=== PATIENT | female | born 1975 | race Caucasian/White ===

== ENCOUNTER 2016-09-18 09:54 | Emergency (ER) | payer MEDICAID ==
[~2016-09-18] VITALS: Ht 165.1 cm; Wt 80.0 kg
[2016-09-18] MEDS ORDERED: SODIUM CHLORIDE 0.9% 500 ML IV ONE (10:55)
[2016-09-18] MEDS ORDERED: ACETAMINOPHEN 325MG TABLET PO ONE (11:15)
[2016-09-18] MEDS ORDERED: KETOROLAC 30MG/ML VIAL IV ONE (11:15)
[2016-09-18 11:36] LABS: HEMATOCRIT. 38.6 % (36.0-48.0); HEMOGLOBIN. 13.1 g/dL (12.0-16.0); MEAN CORPUSCULAR HEMOGLOBIN 28.3 pg (28.0-32.0); MEAN CORPUSCULAR VOLUME 83.3 fL (81.0-99.0); MEAN PLATELET VOLUME 9.6 fl (7.4-10.4); PLATELET 159 x1000/uL (130-400); RED BLOOD CELL COUNT 4.63 mill/uL (4.2-5.4); RED CELL DISTRIBUTION WIDTH 14.5 % (11.6-14.6)
[2016-09-18 11:43] LABS: CHLORIDE 102 mEq/L (98-107)
[2016-09-18 11:46] LABS: CARBON DIOXIDE 25 mEq/L (21-32); HCG SCREEN NEGATIVE
[2016-09-18 11:52] LABS: PLATELET ESTIMATE NORMAL
[2016-09-18] MEDS ORDERED: POTASSIUM CHLORIDE 20MEQ TABLET SR PO ONE (12:00)
[2016-09-18 13:26] LABS: CLARITY URINE CLOUDY (CLEAR); COLOR URINE DARK YELLOW (YELLOW); GLUCOSE URINE NEGATIVE (NEGATIVE); KETONES URINE 1+ (NEGATIVE); LEUKOCYTE ESTERASE URINE 2+ (NEGATIVE); NITRITE URINE NEGATIVE (NEGATIVE); OCCULT BLOOD URINE 3+ (NEGATIVE); PROTEIN URINE 2+ (NEGATIVE); SPECIFIC GRAVITY URINE 1.024 (1.005-1.030)
[2016-09-18 13:48] LABS: *BARBITURATES SCREEN URINE NEGATIVE (NEGATIVE); *BENZODIAZEPINES SCREEN URINE NEGATIVE (NEGATIVE); *COCAINE SCREEN URINE NEGATIVE (NEGATIVE); CANNABINOID URINE SCREEN NEGATIVE (NEGATIVE); METHADONE URINE SCREEN NEGATIVE (NEGATIVE); OPIATES URINE SCREEN NEGATIVE (NEGATIVE); PHENCYCLIDINE URINE SCREEN NEGATIVE (NEGATIVE)
[2016-09-18 13:49] LABS: *AMPHETAMINES SCREEN URINE PRESUMTIVE POSITIVE (NEGATIVE)
[2016-09-18 14:30] VITALS: BP 98/51
== END 2016-09-18 14:34 | disposition home or self-care (01) ==
LOC: ER 10:21
DX: R55 Syncope and collapse (principal); N39.0 Urinary tract infection, site not specified
CPT/HCPCS: 36415; 71010; 80053; 80305; 81001; 84703; 85025; 93005; 96360; 96361; 99285; J7040

== ENCOUNTER 2016-11-13 06:32 | Day surgery (SDC) | payer MEDICAID ==
[~2016-11-13] VITALS: Ht 157.5 cm; Wt 81.6 kg
[~2016-11-13 06:32] MED LIST: FERR325T6 PO; IBUP-2030 PO; LEVO500T2 PO; TOPI100T37 PO; VITA1TAB20 PO; [UNRECOGNIZED DRUG - CODE] PO
[2016-11-13] MEDS ORDERED: LACTATED RINGERS 1,000 ML IV SCH (07:15)
[2016-11-13 07:16] LABS: UCG SCREEN NEGATIVE
[2016-11-13] MEDS ORDERED: [UNRECOGNIZED DRUG - REMARK] PO (07:46)
[2016-11-13] MEDS ORDERED: IOHEXOL-300 100 ML BOTTLE ONE (08:49)
[2016-11-13] MEDS ORDERED: MIDAZOLAM HCL 2 MG/2 ML VIAL ONE (09:00)
[2016-11-13] MEDS ORDERED: FENTANYL CITRATE/PF 50MCG/ML 2ML VIAL ONE (09:00)
[2016-11-13] MEDS ORDERED: HYDROMORPHONE HCL/PF 2MG/ML (OR) ONE (09:18)
[2016-11-13] MEDS ORDERED: GENTAMICIN SULF 40MG/ML 2ML VIAL ONE (09:18)
[2016-11-13] MEDS ORDERED: PROPOFOL 200MG/20ML VIAL IV ONE (09:45)
[2016-11-13] MEDS ORDERED: ONDANSETRON HCL 4MG/2ML VIAL ONE (09:48)
[2016-11-13] MEDS ORDERED: ROCURONIUM BROMIDE 10MG/ML VIAL 5ML IV ONE (09:51)
[2016-11-13] MEDS ORDERED: FENTANYL CITRATE/PF 50MCG/ML 2ML VIAL IV PRN (10:00)
[2016-11-13] MEDS ORDERED: HYDROMORPHONE HCL/PF 2MG/ML CPJ IV PRN (10:00)
[2016-11-13] MEDS ORDERED: ONDANSETRON HCL 4MG/2ML VIAL IV PRN (10:00)
[2016-11-13] MEDS ORDERED: GLYCOPYRROLATE 0.2 MG/ML 2ML VIAL ONE (10:21)
[2016-11-13] MEDS ORDERED: NEOSTIGMINE METHYLSULFATE 1MG/ML 10 ML VIAL ONE (10:21)
[2016-11-13] MEDS ORDERED: ACETAMINOPHEN 160 MG/5 ML UD CUP PO STA (11:31)
[2016-11-13] MEDS ORDERED: KETOROLAC 30MG/ML VIAL IV PRN (11:45)
[2016-11-13] MEDS ORDERED: ACETAMINOPHEN 325MG TABLET ONE (11:47)
[2016-11-13 11:58] VITALS: BP 120/68
[2016-11-13] MEDS ORDERED: IBUPROFEN 800MG TABLET PO PRN (12:30)
== END 2016-11-13 14:30 | disposition home or self-care (01) ==
LOC: OR 06:32
PROVIDERS: ATTEND Urology
DX: N13.2 Hydronephrosis with renal and ureteral calculous obstruction (principal); Z91.013 Allergy to seafood; Z91.018 Allergy to other foods
CPT/HCPCS: 52356; 74000; 81025; 82360; 88300; C1769; C2617; J1170; J1580; J2250; J2405; J2710; J3010; J3490; J7120; Q9967; J2704

== ENCOUNTER 2017-03-04 06:58 | Day surgery (SDC) | payer MEDICAID ==
[~2017-03-04] VITALS: Ht 157.5 cm; Wt 81.6 kg
[~2017-03-04 06:58] MED LIST changes: +[UNRECOGNIZED DRUG - REMARK] PO
[2017-03-04 07:32] LABS: UCG SCREEN NEGATIVE
[2017-03-04] MEDS ORDERED: LACTATED RINGERS 1,000 ML IV SCH (08:15)
[2017-03-04] MEDS ORDERED: TOPI50TA24 PO (08:44)
[2017-03-04] MEDS ORDERED: CEFAZOLIN SODIUM 1000MG/VIAL ONE (09:15)
[2017-03-04] MEDS ORDERED: DEXAMETHASONE 4MG/ML 1ML VIAL ONE (09:15)
[2017-03-04] MEDS ORDERED: ONDANSETRON HCL 4MG/2ML VIAL ONE (09:15)
[2017-03-04] MEDS ORDERED: ROCURONIUM BROMIDE 10MG/ML VIAL 5ML IV ONE (09:26)
[2017-03-04] MEDS ORDERED: ONDANSETRON HCL 4MG/2ML VIAL IV PRN (09:30)
[2017-03-04] MEDS ORDERED: HYDROMORPHONE HCL/PF 2MG/ML CPJ IV PRN (09:30)
[2017-03-04] MEDS ORDERED: MEPERIDINE HCL/PF 25MG/ML CPJ IV PRN (09:30)
[2017-03-04] MEDS ORDERED: LABETALOL HCL 20MG/4ML CARPUJECT IV PRN (09:30)
[2017-03-04] MEDS ORDERED: GLYCOPYRROLATE 0.2 MG/ML 2ML VIAL ONE (10:39)
[2017-03-04] MEDS ORDERED: NEOSTIGMINE METHYLSULFATE 1MG/ML 10 ML VIAL ONE (10:39)
[2017-03-04 11:12] VITALS: BP 140/87
== END 2017-03-04 12:30 | disposition home or self-care (01) ==
LOC: OR 06:58
PROVIDERS: ATTEND Urology
DX: N20.1 Calculus of ureter (principal); Z88.5 Allergy status to narcotic agent; Z91.013 Allergy to seafood; Z91.02 Food additives allergy status; Z98.890 Other specified postprocedural states
CPT/HCPCS: 52332; 52352; 74420; 81025; C1769; C2617; J0690; J1100; J2175; J2405; J2710; J3490; J7120

== ENCOUNTER 2017-11-10 04:09 | Emergency (ER) | payer MEDICAID ==
[~2017-11-10] VITALS: Ht 167.6 cm; Wt 63.0 kg
[~2017-11-10 04:09] MED LIST changes: -TOPI100T37 PO; +TOPI50TA24 PO
[2017-11-10 05:05] LABS: BASOPHILS % 1.1 % (0.0-2.0); EOSINOPHILS % 4.3 % (0.0-5.0); HEMATOCRIT. 38.8 % (36.0-48.0); HEMOGLOBIN. 13.2 g/dL (12.0-16.0); LYMPHOCYTES % 30.1 % (20.0-50.0); MEAN CORPUSCULAR VOLUME 85.6 fL (81.0-99.0); MEAN PLATELET VOLUME 10.2 fl (7.4-10.4); MONOCYTES % 10.9 % (2.0-8.0); NEUTROPHILS % 53.6 % (40.0-76.0); PLATELET 178 x1000/uL (130-400); RED BLOOD CELL COUNT 4.53 mill/uL (4.2-5.4); RED CELL DISTRIBUTION WIDTH 13.8 % (11.6-14.6)
[2017-11-10 05:08] LABS: CHLORIDE 105 mEq/L (98-107)
[2017-11-10 05:11] LABS: INR 1.1; PARTIAL THROMBOPLASTIN TIME 23.3 sec (23.4-31.0); PROTHROMBIN TIME 10.9 sec (9.1-11.1)
[2017-11-10] MEDS ORDERED: HYDROCODONE/ACETAMINOPHEN 5/325MG TABLET PO ONE (10:30)
[2017-11-10 10:55] VITALS: BP 129/59
== END 2017-11-10 11:03 | disposition home or self-care (01) ==
LOC: ER 04:09 → ENRESERV 10:51 → CANRESERV 10:51 → ER 11:03 → CANBEDREQ 15:58
DX: R07.89 Other chest pain (principal); Z91.013 Allergy to seafood; Z91.018 Allergy to other foods
CPT/HCPCS: 36415; 71045; 80053; 81025; 83880; 84484; 85025; 85610; 85730; 93005; 99285